=== PATIENT | female | born 1980 | race Caucasian/White ===

== ENCOUNTER 2018-03-11 10:51 | Emergency (ER) | payer OTHER ==
[2018-03-11 11:05] VITALS: BP 134/91
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
== END 2018-03-11 13:05 | disposition home or self-care (01) ==
LOC: KA.ED 10:51
DX: M54.6 Pain in thoracic spine (principal); F17.210 Nicotine dependence, cigarettes, uncomplicated; V47.5XXA Car driver injured in collision with fixed or stationary object in traffic accident, initial encounter
CPT/HCPCS: 72070; 72100; 73590-50; 80305-QW; 81025; 99284